=== PATIENT | female | born 1995 | race Hispanic/Latino ===

== ENCOUNTER 2016-06-12 16:43 | Emergency (ER) | payer SELFPAY ==
[~2016-06-12] VITALS: Ht 152.4 cm; Wt 45.0 kg
[~2016-06-12 16:43] MED LIST: ALBUTEROL S2.5 MG/.5 IN; AMOXICILLIN500 MG PO; CEPHALEXIN500 MG PO; CLARITIN10 M1 PO; DOXYCYCL HYC100 MG PO; LORATADINE10 M1 PO; MAG CITRATE PO; METRONIDAZOL500 MG PO; MIRALAX3350 N1 PO; NO MEDS; PROAIR HFA IN; ROBITUSSIN AC10 ML PO; ZOFRAN4 MG/TAB PO
[2016-06-12] MEDS ORDERED: VALTREX1 GM PO (17:18)
[2016-06-12 17:25] VITALS: BP 110/70
== END 2016-06-12 17:32 | disposition home or self-care (01) | DRG 759 ==
LOC: ED 16:43
DX: A60.00 Herpesviral infection of urogenital system, unspecified (principal); R10.2 Pelvic and perineal pain

== ENCOUNTER 2016-07-28 10:40 | Emergency (ER) | payer SELFPAY ==
[~2016-07-28] VITALS: Ht 152.4 cm; Wt 40.0 kg
[~2016-07-28 10:40] MED LIST changes: +VALTREX1 GM PO
[2016-07-28] MEDS ORDERED: TRAMADOL HYDROC50 MG PO (12:04)
[2016-07-28] MEDS ORDERED: MOTRIN800 MG PO (12:04)
[2016-07-28] MEDS ORDERED: ZOFRAN ODT4 MG PO (12:04)
[2016-07-28 12:25] VITALS: BP 124/82
== END 2016-07-28 12:45 | disposition home or self-care (01) | DRG 103 ==
LOC: ED 10:40
DX: G44.209 Tension-type headache, unspecified, not intractable (principal)

== ENCOUNTER 2016-10-30 08:57 | Emergency (ER) | payer SELFPAY ==
[~2016-10-30 08:57] MED LIST changes: +MOTRIN800 MG PO; +TRAMADOL HYDROC50 MG PO; +ZOFRAN ODT4 MG PO
== END 2016-10-30 09:12 | disposition left against medical advice (07) | DRG 951 ==
LOC: ED 08:57 → LWOBS 09:12
DX: Z91.19 Patient's noncompliance with other medical treatment and regimen (principal)

== ENCOUNTER 2016-11-01 03:02 | Emergency (ER) | payer SELFPAY ==
[~2016-11-01] VITALS: Ht 152.4 cm; Wt 38.4 kg
[2016-11-01 03:07] VITALS: BP 107/67
[2016-11-01] MEDS ORDERED: ZITHROMAX250 MG PO (03:30)
[2016-11-01] MEDS ORDERED: TYLENOL # 31 TA1 PO (03:31)
== END 2016-11-01 03:59 | disposition home or self-care (01) | DRG 203 ==
LOC: ED 03:02
DX: J20.9 Acute bronchitis, unspecified (principal); J45.909 Unspecified asthma, uncomplicated

== ENCOUNTER 2017-01-19 21:13 | Emergency (ER) | payer SELFPAY ==
[~2017-01-19] VITALS: Ht 152.4 cm; Wt 39.8 kg
[~2017-01-19 21:13] MED LIST changes: +TYLENOL # 31 TA1 PO; +ZITHROMAX250 MG PO
[2017-01-19] MEDS ORDERED: AMOXICILLIN500 MG PO (22:07)
[2017-01-19] MEDS ORDERED: PERCOCET 5/325M1 TAB PO (22:07)
[2017-01-19 22:19] VITALS: BP 133/44
== END 2017-01-19 22:16 | disposition home or self-care (01) | DRG 159 ==
LOC: ED 21:13
DX: K08.89 Other specified disorders of teeth and supporting structures (principal); K05.10 Chronic gingivitis, plaque induced

== ENCOUNTER 2017-04-30 17:58 | Emergency (ER) | payer SELFPAY ==
[~2017-04-30] VITALS: Ht 152.4 cm; Wt 38.4 kg
[~2017-04-30 17:58] MED LIST changes: +PERCOCET 5/325M1 TAB PO
[2017-04-30] MEDS ORDERED: NAPROSYN500 MG PO (19:58)
[2017-04-30 20:01] VITALS: BP 120/68
== END 2017-04-30 20:10 | disposition home or self-care (01) | DRG 159 ==
LOC: ED 17:58
DX: M26.601 Right temporomandibular joint disorder, unspecified (principal)

== ENCOUNTER 2017-12-27 10:28 | Emergency (ER) | payer SELFPAY ==
[~2017-12-27] VITALS: Ht 152.4 cm; Wt 37.6 kg
[~2017-12-27 10:28] MED LIST changes: +NAPROSYN500 MG PO
[2017-12-27 11:11] LABS: HEMATOCRIT 39.6 % (37.0-47.0); HEMOGLOBIN 12.8 g/dl (12.0-16.0); IMMATURE GRANULOCYTES 0.3 % (0.0-5.0); MEAN CELL VOLUME 89.4 fL CALC (80.0-100.0); MEAN CORPUSCULAR HGB 28.9 pG CALC (26.0-32.0); MEAN CORPUSCULAR HGB CONC 32.3 g/L CALC (32.0-36.0); NEUT# 4.26 thou/uL (2.00-7.15); RED BLOOD COUNT 4.43 mill/uL (4.20-5.60); RED CELL DISTRI WIDTH 13.4 % (11.5-15.5)
[2017-12-27 11:12] LABS: URINE BILIRUBIN - DIPSTICK NEGATIVE (NEGATIVE); URINE BLOOD DIPSTICK LARGE (NEGATIVE); URINE COLOR YELLOW; URINE GLUCOSE - DIPSTICK NEGATIVE (NEGATIVE); URINE KETONE NEGATIVE (NEGATIVE); URINE NITRITE - DIPSTICK NEGATIVE (Negative); URINE PROTEIN - DIPSTICK NEGATIVE (NEG-TRACE); URINE UROBILINOGEN - DIPSTICK 0.2 E.U./dL (0.2)
[2017-12-27 11:20] LABS: URINE LEUK ESTERASE SMALL (NEGATIVE)
[2017-12-27 11:21] LABS: URINE CLARITY HAZY
[2017-12-27 11:24] LABS: URINE BACTERIA FEW hpf; URINE EPITHELIAL CELLS FEW EPI/hpf (0-FEW); URINE TRICHOMONAS MODERATE hpf
[2017-12-27 11:30] LABS: ANION GAP 13 (6-22 (CALC)); BUN 18 mg/dL (7-17); BUN/CREATININE RATIO 26 (12-20 (CALC)); CARBON DIOXIDE 27 mmol/l (22-30); CHLORIDE 106 mmol/l (95-108); CREATININE 0.7 mg/dL (0.5-1.0); GFR > 60 ML/MIN (>=60 (CALC)); GFR FOR AFR.AMER. > 60 ML/MIN (>=60 (CALC)); POTASSIUM 4.3 mmol/l (3.5-5.1); SODIUM 141 mmol/l (137-146)
[2017-12-27 12:54] VITALS: BP 114/68
[2017-12-27] MEDS ORDERED: METRONIDAZOL500 MG PO (13:11)
== END 2017-12-27 13:34 | disposition home or self-care (01) | DRG 759 ==
LOC: ED 10:28
PROVIDERS: Family Medicine
DX: A59.00 Urogenital trichomoniasis, unspecified (principal); N39.0 Urinary tract infection, site not specified

== ENCOUNTER 2018-03-24 16:31 | Emergency (ER) | payer SELFPAY ==
[~2018-03-24] VITALS: Ht 152.4 cm; Wt 36.6 kg
[2018-03-24] MEDS ORDERED: AUGMENTIN875TAB PO (17:08)
[2018-03-24 17:27] VITALS: BP 106/73
== END 2018-03-24 17:30 | disposition home or self-care (01) | DRG 153 ==
LOC: ED 16:31
DX: J32.9 Chronic sinusitis, unspecified (principal); J02.9 Acute pharyngitis, unspecified

== ENCOUNTER 2019-01-21 15:51 | Emergency (ER) | payer SELFPAY ==
[~2019-01-21] VITALS: Ht 152.4 cm; Wt 35.9 kg
[~2019-01-21 15:51] MED LIST changes: +ANUCORT-HC25 MG RE; +AUGMENTIN875TAB PO
[2019-01-21 16:53] LABS: HEMATOCRIT 38.5 % (37.0-47.0); HEMOGLOBIN 12.6 g/dl (12.0-16.0); IMMATURE GRANULOCYTES 0.3 % (0.0-5.0); MEAN CELL VOLUME 86.1 fL CALC (80.0-100.0); MEAN CORPUSCULAR HGB 28.2 pG CALC (26.0-32.0); MEAN CORPUSCULAR HGB CONC 32.7 g/L CALC (32.0-36.0); NEUT# 6.51 thou/uL (2.00-7.15); RED BLOOD COUNT 4.47 mill/uL (4.20-5.60); RED CELL DISTRI WIDTH 13.4 % (11.5-15.5)
[2019-01-21 17:00] LABS: URINE BILIRUBIN - DIPSTICK NEGATIVE (NEGATIVE); URINE BLOOD DIPSTICK NEGATIVE (NEGATIVE); URINE COLOR YELLOW; URINE GLUCOSE - DIPSTICK NEGATIVE (NEGATIVE); URINE KETONE TRACE mg/dL (NEGATIVE); URINE LEUK ESTERASE NEGATIVE (NEGATIVE); URINE NITRITE - DIPSTICK NEGATIVE (Negative); URINE PH 5.5 (4.5-8.0); URINE PROTEIN - DIPSTICK TRACE mg/dL (NEG-TRACE); URINE SPECIFIC GRAVITY >=1.030
[2019-01-21 17:10] LABS: ALBUMIN 4.6 g/dL (3.2-5.0); ALKALINE PHOSPHATASE 68 u/l (38-126); ANION GAP 13 (6-22 (CALC)); BUN 16 mg/dL (7-17); BUN/CREATININE RATIO 27 (12-20 (CALC)); CARBON DIOXIDE 23 mmol/l (22-30); CHLORIDE 106 mmol/l (95-108); CREATININE 0.6 mg/dL (0.5-1.0); GFR > 60 ML/MIN (>=60 (CALC)); GFR FOR AFR.AMER. > 60 ML/MIN (>=60 (CALC)); LIPASE 89 u/l (23-300); POTASSIUM 3.6 mmol/l (3.5-5.1); SGOT/AST 24 u/l (14-36); SODIUM 138 mmol/l (137-146); TOTAL PROTEIN 7.4 g/dL (6.3-8.2)
[2019-01-21 17:11] LABS: BILIRUBIN, TOTAL 0.7 mg/dL (0.0-1.4)
[2019-01-21] MEDS ORDERED: ZOFRAN4 MG/TAB PO (18:10)
[2019-01-21 18:22] VITALS: BP 108/58
== END 2019-01-21 18:24 | disposition home or self-care (01) | DRG 392 ==
LOC: ED 15:51
DX: A08.4 Viral intestinal infection, unspecified (principal)

== ENCOUNTER 2019-03-27 | Emergency (ER) | payer SELFPAY | END 2019-03-27 10:08 | disposition home or self-care (01) | DRG 153 | DX: J06.9 Acute upper respiratory infection, unspecified (principal) ==

== ENCOUNTER 2019-06-07 | Emergency (ER) | payer SELFPAY ==
[2019-06-07] MEDS ORDERED: TRAMADOL HYDROC50 M1 PO (11:49)
== END 2019-06-07 12:25 | disposition home or self-care (01) | DRG 159 ==
DX: M26.621 Arthralgia of right temporomandibular joint (principal)

== ENCOUNTER 2019-12-17 07:17 | Emergency (ER) | payer MEDICAID ==
[~2019-12-17] VITALS: Ht 152.4 cm; Wt 38.6 kg
[~2019-12-17 07:17] MED LIST changes: +TRAMADOL HYDROC50 M1 PO
[2019-12-17] MEDS ORDERED: AMOXICILLIN500 MG PO (08:34)
[2019-12-17 08:38] VITALS: BP 118/62
== END 2019-12-17 08:44 | disposition home or self-care (01) ==
LOC: ED 07:17
DX: J02.9 Acute pharyngitis, unspecified (principal)

== ENCOUNTER 2020-03-06 19:05 | Emergency (ER) | payer MEDICAID ==
[~2020-03-06] VITALS: Ht 152.4 cm; Wt 45.0 kg
[2020-03-06 19:25] VITALS: BP 94/54
--- NOTE | 2020-03-10 10:15 | NUR ---
patient called for Covid results. Advised that her results were negative. Patient requesting copy of results. 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
== END 2020-03-06 20:08 | disposition home or self-care (01) ==
LOC: ED 19:05
DX: Z20.828 Contact with and (suspected) exposure to other viral communicable diseases (principal)

== ENCOUNTER 2020-05-14 17:09 | Emergency (ER) | payer MEDICAID ==
[~2020-05-14] VITALS: Ht 152.4 cm; Wt 40.0 kg
[2020-05-14 18:40] LABS: HEMATOCRIT 40.1 % (37.0-47.0); HEMOGLOBIN 12.7 g/dl (12.0-16.0); IMMATURE GRANULOCYTES 0.3 % (0.0-5.0); MEAN CELL VOLUME 87.2 fL CALC (80.0-100.0); MEAN CORPUSCULAR HGB 27.6 pG CALC (26.0-32.0); MEAN CORPUSCULAR HGB CONC 31.7 g/dL CAL (32.0-36.0); NEUT# 9.77 thou/uL (2.00-7.15); RED BLOOD COUNT 4.6 mill/uL (4.20-5.60)
[2020-05-14 19:00] LABS: URINE BILIRUBIN - DIPSTICK NEGATIVE (NEGATIVE); URINE BLOOD DIPSTICK MODERATE (NEGATIVE); URINE COLOR YELLOW; URINE GLUCOSE - DIPSTICK NEGATIVE (NEGATIVE); URINE KETONE 15 mg/dL (NEGATIVE); URINE LEUK ESTERASE NEGATIVE (NEGATIVE); URINE NITRITE - DIPSTICK NEGATIVE (Negative); URINE PH 6.5 (4.5-8.0); URINE PROTEIN - DIPSTICK NEGATIVE (NEG-TRACE)
[2020-05-14 19:01] LABS: ALBUMIN 4.4 g/dL (3.2-5.0); ALKALINE PHOSPHATASE 61 u/l (38-126); ANION GAP 12 (6-22 (CALC)); BILIRUBIN, TOTAL 0.9 mg/dL (0.0-1.4); BUN 12 mg/dL (7-17); BUN/CREATININE RATIO 21 (12-20 (CALC)); CARBON DIOXIDE 26 mmol/l (22-30); CHLORIDE 102 mmol/l (95-108); CREATININE 0.6 mg/dL (0.5-1.0); GFR > 60 ML/MIN (>=60 (CALC)); GFR FOR AFR.AMER. > 60 ML/MIN (>=60 (CALC)); LIPASE 109 u/l (23-300); POTASSIUM 3.7 mmol/l (3.5-5.1); SGOT/AST 22 u/l (14-36); SODIUM 136 mmol/l (137-146)
[2020-05-14 19:02] LABS: HCG SERUM/URINE (NEG/POS) NEGATIVE (NEGATIVE)
[2020-05-14 19:12] LABS: URINE SQUAMOUS EPITHELIAL CELL FEW EPI/hpf (0-FEW); URINE WBC 0-2 WBC/hpf (0-5)
[2020-05-14] MEDS ORDERED: ULTRAM50 MG PO (21:49)
[2020-05-14] MEDS ORDERED: ZOFRAN4 MG/TAB PO (21:49)
[2020-05-14 22:05] VITALS: BP 112/60
== END 2020-05-14 22:05 | disposition home or self-care (01) ==
LOC: ED 17:09
PROVIDERS: Family Medicine
DX: R10.32 Left lower quadrant pain (principal); R10.31 Right lower quadrant pain; R10.12 Left upper quadrant pain; R11.2 Nausea with vomiting, unspecified; Z20.822 Contact with and (suspected) exposure to COVID-19
CPT/HCPCS: Q9967; S0164

== ENCOUNTER 2020-08-14 08:29 | Emergency (ER) | payer MEDICAID ==
[~2020-08-14] VITALS: Ht 152.4 cm; Wt 39.0 kg
[~2020-08-14 08:29] MED LIST changes: +ULTRAM50 MG PO
[2020-08-14 08:40] VITALS: BP 113/59
[2020-08-14] MEDS ORDERED: AMOXICILLIN875 MG PO (09:31)
== END 2020-08-14 10:27 | disposition home or self-care (01) ==
LOC: ED 08:29
DX: J02.9 Acute pharyngitis, unspecified (principal); Z20.822 Contact with and (suspected) exposure to COVID-19

== ENCOUNTER 2021-09-29 16:27 | Emergency (ER) | payer MEDICAID ==
[~2021-09-29] VITALS: Ht 152.4 cm; Wt 39.2 kg
[~2021-09-29 16:27] MED LIST changes: +AMOXICILLIN875 MG PO
[2021-09-29 18:18] LABS: URINE BILIRUBIN - DIPSTICK NEGATIVE (NEGATIVE); URINE BLOOD DIPSTICK NEGATIVE (NEGATIVE); URINE COLOR YELLOW; URINE GLUCOSE - DIPSTICK NEGATIVE (NEGATIVE); URINE KETONE NEGATIVE (NEGATIVE); URINE LEUK ESTERASE NEGATIVE (NEGATIVE); URINE PH 7.5 (4.5-8.0); URINE PROTEIN - DIPSTICK TRACE mg/dL (NEG-TRACE)
[2021-09-29 18:19] LABS: HEMATOCRIT 35.6 % (37.0-47.0); HEMOGLOBIN 11.3 g/dl (12.0-16.0); IMMATURE GRANULOCYTES 0.1 % (0.0-5.0); MEAN CELL VOLUME 88.3 fL CALC (80.0-100.0); MEAN CORPUSCULAR HGB CONC 31.7 g/dL CAL (32.0-36.0); NEUT# 4.98 thou/uL (2.00-7.15); RED BLOOD COUNT 4.03 mill/uL (4.20-5.60); RED CELL DISTRI WIDTH 12.7 % (11.5-15.5)
[2021-09-29 18:23] LABS: URINE NITRITE - DIPSTICK NEGATIVE (Negative)
[2021-09-29 18:40] LABS: ALBUMIN 4.1 g/dL (3.2-5.0); ALKALINE PHOSPHATASE 56 u/l (38-126); ANION GAP 10 (6-22 (CALC)); BILIRUBIN, TOTAL 0.4 mg/dL (0.0-1.4); BUN 16 mg/dL (7-17); BUN/CREATININE RATIO 13 (12-20 (CALC)); CARBON DIOXIDE 26 mmol/l (22-30); CHLORIDE 104 mmol/l (95-108); CREATININE 1.2 mg/dL (0.5-1.0); GFR FOR AFR.AMER. > 60 ML/MIN (>=60 (CALC)); GFR OTHER RACES 54 ML/MIN (>=60 (CALC)); POTASSIUM 3.9 mmol/l (3.5-5.1); SGOT/AST 18 u/l (14-36); SODIUM 136 mmol/l (137-146); TOTAL PROTEIN 6.7 g/dL (6.3-8.2)
[2021-09-29] MEDS ORDERED: FIORICET PO (20:15)
[2021-09-29 20:30] VITALS: BP 97/62
== END 2021-09-29 20:50 | disposition home or self-care (01) ==
LOC: ED 16:27
PROVIDERS: Nurse Practitioner
DX: R51.9 Headache, unspecified (principal); Z20.822 Contact with and (suspected) exposure to COVID-19

== ENCOUNTER 2021-12-09 09:50 | Emergency (ER) | payer MEDICAID ==
[~2021-12-09] VITALS: Ht 152.4 cm; Wt 40.4 kg
[~2021-12-09 09:50] MED LIST changes: +FIORICET PO
[2021-12-09 10:50] LABS: HEMATOCRIT 36.2 % (37.0-47.0); HEMOGLOBIN 11.6 g/dl (12.0-16.0); IMMATURE GRANULOCYTES 0.1 % (0.0-5.0); MEAN CORPUSCULAR HGB 27.2 pG CALC (26.0-32.0); NEUT# 5.63 thou/uL (2.00-7.15); RED BLOOD COUNT 4.26 mill/uL (4.20-5.60); RED CELL DISTRI WIDTH 13.5 % (11.5-15.5)
[2021-12-09 11:09] LABS: BUN 14 mg/dL (7-17); CREATININE 0.7 mg/dL (0.5-1.0); GFR FOR AFR.AMER. > 60 ML/MIN (>=60 (CALC)); GFR OTHER RACES > 60 ML/MIN (>=60 (CALC)); POTASSIUM 3.9 mmol/l (3.5-5.1); TOTAL PROTEIN 7.2 g/dL (6.3-8.2)
[2021-12-09 11:16] LABS: ALBUMIN 4.7 g/dL (3.2-5.0); ALKALINE PHOSPHATASE 47 u/l (38-126); ANION GAP 14 (6-22 (CALC)); BUN/CREATININE RATIO 21 (12-20 (CALC)); CARBON DIOXIDE 27 mmol/l (22-30); CHLORIDE 104 mmol/l (95-108); LIPASE 98 u/l (23-300); SGOT/AST 24 u/l (14-36); SODIUM 141 mmol/l (137-146)
[2021-12-09 11:17] LABS: BILIRUBIN, TOTAL 0.2 mg/dL (0.0-1.4)
[2021-12-09 12:00] LABS: URINE BILIRUBIN - DIPSTICK NEGATIVE (NEGATIVE); URINE BLOOD DIPSTICK LARGE (NEGATIVE); URINE COLOR YELLOW; URINE GLUCOSE - DIPSTICK NEGATIVE (NEGATIVE); URINE KETONE NEGATIVE (NEGATIVE); URINE LEUK ESTERASE NEGATIVE (NEGATIVE); URINE PROTEIN - DIPSTICK NEGATIVE (NEG-TRACE); URINE SPECIFIC GRAVITY 1.025; URINE UROBILINOGEN - DIPSTICK 0.2 E.U./dL (0.2)
[2021-12-09 12:10] LABS: URINE NITRITE - DIPSTICK NEGATIVE (Negative); URINE RBC 50-100 RBC/hpf (0-5); URINE WBC 0-2 WBC/hpf (0-5)
[2021-12-09 12:11] LABS: URINE SQUAMOUS EPITHELIAL CELL MANY EPI/hpf (0-FEW); URINE TRICHOMONAS FEW hpf
[2021-12-09 12:13] LABS: URINE BACTERIA MANY hpf
[2021-12-09] MEDS ORDERED: CEPHALEXIN500 M1 PO ×2 (12:39→13:02)
[2021-12-09 13:12] VITALS: BP 101/63
== END 2021-12-09 13:14 | disposition home or self-care (01) ==
LOC: ED 09:50
PROVIDERS: Family Medicine
DX: N39.0 Urinary tract infection, site not specified (principal); B95.1 Streptococcus, group B, as the cause of diseases classified elsewhere

== ENCOUNTER 2022-02-05 09:08 | Emergency (ER) | payer MEDICAID ==
[~2022-02-05] VITALS: Ht 152.4 cm; Wt 39.0 kg
[~2022-02-05 09:08] MED LIST changes: +CEPHALEXIN500 M1 PO
[2022-02-05 09:26] VITALS: BP 96/58
[2022-02-05 09:30] VITALS: BP 90/52
[2022-02-05 09:31] VITALS: BP 90/52
[2022-02-05] MEDS ORDERED: IBUPROFEN600 MG PO (09:39)
[2022-02-05] MEDS ORDERED: PENICILLN VK500 MG PO (09:39)
== END 2022-02-05 10:00 | disposition home or self-care (01) ==
LOC: ED 09:08
DX: K02.9 Dental caries, unspecified (principal); S02.5XXA Fracture of tooth (traumatic), initial encounter for closed fracture; X58.XXXA Exposure to other specified factors, initial encounter

== ENCOUNTER 2022-05-15 21:21 | Emergency (ER) | payer MEDICAID ==
[~2022-05-15 21:21] MED LIST changes: +IBUPROFEN600 MG PO; +PENICILLN VK500 MG PO
== END 2022-05-15 21:55 | disposition left against medical advice (07) | DRG 951 ==
LOC: ED 21:21 → LWOBS 21:55
DX: Z53.21 Procedure and treatment not carried out due to patient leaving prior to being seen by health care provider (principal)

== ENCOUNTER 2022-09-06 12:03 | Emergency (ER) | payer MEDICAID ==
[~2022-09-06] VITALS: Ht 152.4 cm; Wt 42.0 kg
[2022-09-06 12:12] VITALS: BP 130/81
[2022-09-06] MEDS ORDERED: NAPROXEN500 MG PO (13:29)
[2022-09-06] MEDS ORDERED: CEPHALEXIN500 MG PO (13:40)
[2022-09-06 13:43] VITALS: BP 130/81
== END 2022-09-06 13:55 | disposition home or self-care (01) ==
LOC: ED 12:03
DX: M79.651 Pain in right thigh (principal)

== ENCOUNTER 2023-05-25 05:19 | Emergency (ER) | payer SELFPAY ==
[~2023-05-25] VITALS: Ht 152.4 cm; Wt 43.0 kg
[~2023-05-25 05:19] MED LIST changes: +NAPROXEN500 MG PO
[2023-05-25 05:27] VITALS: BP 103/58
[2023-05-25 06:00] VITALS: BP 103/57
[2023-05-25] MEDS ORDERED: BENZONATATE200 MG PO (06:10)
[2023-05-25 06:16] VITALS: BP 103/57
== END 2023-05-25 06:15 | disposition home or self-care (01) | DRG 153 ==
LOC: ED 05:19
DX: J06.9 Acute upper respiratory infection, unspecified (principal); Z20.822 Contact with and (suspected) exposure to COVID-19

== ENCOUNTER 2024-01-05 18:08 | Emergency (ER) | payer SELFPAY ==
[~2024-01-05] VITALS: Ht 152.4 cm; Wt 42.0 kg
[~2024-01-05 18:08] MED LIST changes: +BENZONATATE200 MG PO; +IBUPROFEN200 MG PO
[2024-01-05 18:11] VITALS: BP 116/77
[2024-01-05 18:15] VITALS: BP 115/74
[2024-01-05] MEDS ORDERED: NAPROXEN500 MG PO (18:19)
[2024-01-05] MEDS ORDERED: TRAMADOL HYDROC50 M1 PO (18:19)
[2024-01-05] MEDS ORDERED: KETOROLAC TROMETHAMINE 30 MG/ML SDV IM ONE (18:20)
[2024-01-05] MEDS ORDERED: PENICILLN VK500 MG PO (18:24)
[2024-01-05 18:31] VITALS: BP 95/60
[2024-01-05 18:41] VITALS: BP 95/60
== END 2024-01-05 18:45 | disposition home or self-care (01) | DRG 159 ==
LOC: ED 18:08
DX: K04.7 Periapical abscess without sinus (principal); K02.9 Dental caries, unspecified